=== PATIENT | female | born 1955 | race Caucasian/White ===

== ENCOUNTER → 2020-12-19 10:07 | Outpatient (BNVA) | payer MEDICARE, MEDICAID, SELFPAY | PROVIDERS: PCP Pediatrics; Visit Provider Internal Medicine Rheumatology | DX: M15.9 Polyosteoarthritis, unspecified (principal); R76.8 Other specified abnormal immunological findings in serum; Z79.899 Other long term (current) drug therapy; Z11.59 Encounter for screening for other viral diseases; Z11.1 Encounter for screening for respiratory tuberculosis; M35.9 Systemic involvement of connective tissue, unspecified; E11.9 Type 2 diabetes mellitus without complications; Z79.4 Long term (current) use of insulin; J44.9 Chronic obstructive pulmonary disease, unspecified; Z99.81 Dependence on supplemental oxygen; Z85.72 Personal history of non-Hodgkin lymphomas; Z71.89 Other specified counseling; F17.200 Nicotine dependence, unspecified, uncomplicated; M19.90 Unspecified osteoarthritis, unspecified site | CPT/HCPCS: 36415; 71046; 73630; 80076; 82306; 82565; 85025; 86160; 86162; 86235; 86255; 86376; 86480; 86704; 86803; 87340; 99204; 99214 ==

== ENCOUNTER 2020-12-19 11:46 | Outpatient (CLI) | payer MEDICARE, MEDICAID, SELFPAY ==
--- NOTE | 2020-12-19 11:51 | XRR_ITS ---
PROCEDURE INFORMATION: Exam: XR Right Foot Exam date and time: 12/19/2020 11:51 AM Age: 65 years old Clinical indication: Foot; Bilateral; Patient HX: Swelling in feet. HX of hodgkins lymphoma. 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 Views: 3 or more views. COMPARISON: No relevant prior studies available. FINDINGS: Bones/joints: Tiny calcaneal spur present. Negative for fracture. No irregular osseous erosion. Mild DJD at the 1st metatarsophalangeal joint space. Soft tissues: Normal. XR/XR foot RT min 3V* [id number] IMPRESSION: No acute osseous findings of the right foot.
--- NOTE | 2020-12-19 11:51 | XRR_ITS ---
PROCEDURE INFORMATION: Exam: XR Chest Exam date and time: 12/19/2020 11:51 AM Age: 65 years old Clinical indication: Patient HX: Swelling in feet. HX of hodgkins lymphoma. 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 Views: 2 views. COMPARISON: No relevant prior studies available. FINDINGS: Lungs: Hazy opacification at the right lung base. Otherwise no focal consolidation. Calcified granuloma or bone island projecting over the peripheral left upper lobe. Pleural spaces: Unremarkable. No pleural effusion. No pneumothorax. Heart/Mediastinum: Unremarkable. No cardiomegaly. Bones/joints: See Lungs finding. XR/XR chest 2V* [id number] IMPRESSION: Hazy opacification at the right lung base, atelectasis is a consideration as well as developing infection in the appropriate clinical setting.
--- NOTE | 2020-12-19 11:51 | XRR_ITS ---
PROCEDURE INFORMATION: Exam: XR Left Foot Exam date and time: 12/19/2020 11:51 AM Age: 65 years old Clinical indication: Foot; Bilateral; Patient HX: Swelling in feet. HX of hodgkins lymphoma. Hand pain; Additional info: Z79.899 - other alf (current) drug therapy TECHNIQUE: Imaging protocol: XR Left foot. Views: 3 or more views. COMPARISON: No relevant prior studies available. FINDINGS: Bones/joints: Tiny calcaneal spur. Small enthesophyte at the Achilles insertion. No evidence of fracture. No irregular osseous erosions. Soft tissues: Normal. XR/XR foot LT min 3V* [id number] IMPRESSION: No acute osseous abnormalities of the left foot.
[2020-12-19 12:30] LABS: Basophils # 0.1 10^3/uL (0.0-0.1); Basophils % 1.3 %; Eosinophils # 0.3 10^3/uL (0.0-0.8); Eosinophils % 3.5 %; Hematocrit 41.2 % (37.0-47.0); Hemoglobin 12.9 g/dL (11.5-15.3); Lymphocytes % 24.6 %; Mean Corpuscular HGB Conc 31.3 g/dL (30.0-36.0); Mean Corpuscular Hemoglobin 27.8 pg (28.0-34.0); Mean Corpuscular Volume 88.8 fL (81-99); Mean Platelet Volume 10.2 fL (7.4-10.4); Monocytes # 0.5 10^3/uL (0.2-0.9); Monocytes % 5.8 %; Neutrophils # 5.31 10^3/uL (1.8-7.7); Neutrophils % 64.4 %; Nucleated Red Blood Cells % 0 %; Platelet Count 266 10^3/cmm (130-400); Red Blood Count 4.64 10^6/uL (4.1-5.3); Red Cell Distribution Width 15.1 % (12.1-15.1); White Blood Count 8.3 10^3/uL (4.0-10.0)
[2020-12-19 13:15] LABS: Hepatitis B Surface Antigen Non-Reactive (Nonreactive); Hepatitis C Virus Antibody Non-Reactive (Nonreactive)
[2020-12-19 13:29] LABS: Hepatitis B Core AB, Total Non-Reactive (Nonreactive)
[2020-12-19 13:52] LABS: Alanine Aminotransferase 18 U/L (0-33); Albumin Level 4.3 g/dL (3.5-5.2); Alkaline Phosphatase 158 IU/L (35-105); Aspartate Amino Transferase 18 U/L (0-32); Globulin 2.5 g/dL (1.3-4.6); Glomerular Filtration Rate 83.5 mL/min (90-130); Total Bilirubin 0.5 mg/dL (0.15-1.2); Total Protein 6.8 g/dL (6.6-8.7)
[2020-12-19 14:08] LABS: 25 Hydroxy Vitamin D 12 ng/mL (30-100)
[2020-12-20 15:58] LABS: COMPLEMENT, TOTAL (CH50) >60 U/mL (31-60)
[2020-12-21 11:37] LABS: COMPLEMENT COMPONENT C3C 178 mg/dL (83-193); COMPLEMENT COMPONENT C4C 49 mg/dL (15-57)
[2020-12-21 15:34] LABS: Quantiferon Mitogen 9.03 IU/mL; Quantiferon Nil 0.01 IU/mL; Quantiferon TB Gold NEGATIVE (NEGATIVE)
[2020-12-21 16:42] LABS: THYROID PEROXIDASE ANTIBODIES 3 IU/mL (<9)
[2020-12-22 12:53] LABS: CENTROMERE B ANTIBODY <1.0 NEG AI (<1.0 NEG); JO-1 ANTIBODY <1.0 NEG AI (<1.0 NEG); RNP ANTIBODY <1.0 NEG AI (<1.0 NEG); SCL-70 ANTIBODY <1.0 NEG AI (<1.0 NEG); SJOGREN'S ANTIBODY (SS-A) <1.0 NEG AI (<1.0 NEG); SM ANTIBODY <1.0 NEG AI (<1.0 NEG); SS-B <1.0 NEG AI (<1.0 NEG)
[2020-12-26 12:07] LABS: ANA PATTERN Nuclear, Homogeneous; ANA SCREEN, IFA POSITIVE (NEGATIVE)
[2020-12-28 02:28] LABS: DNA AB (DS) CRITHIDIA,IFA NEGATIVE (NEGATIVE)
== END 2020-12-19 11:47 | disposition home or self-care (01) ==
PROVIDERS: PCP Pediatrics; Visit Provider Internal Medicine Rheumatology
DX: M19.90 Unspecified osteoarthritis, unspecified site (principal); Z79.899 Other long term (current) drug therapy; Z11.59 Encounter for screening for other viral diseases; R76.8 Other specified abnormal immunological findings in serum; Z11.1 Encounter for screening for respiratory tuberculosis
CPT/HCPCS: 36415; 71046; 73630; 80076; 82306; 82565; 85025; 86160; 86162; 86235; 86255; 86376; 86480; 86704; 86803; 87340

== ENCOUNTER → 2021-12-12 14:06 | Outpatient (BNVA) | payer MEDICARE, MEDICAID, SELFPAY | PROVIDERS: PCP Pediatrics; Referring Provider Pediatrics; Visit Provider Nurse Practitioner Family | DX: M67.442 Ganglion, left hand (principal); M65.332 Trigger finger, left middle finger; M65.342 Trigger finger, left ring finger | CPT/HCPCS: 73110; 99214 ==

== ENCOUNTER → 2022-04-17 13:51 | Outpatient (BNVA) | payer MEDICARE, MEDICAID, SELFPAY | PROVIDERS: PCP Pediatrics; Visit Provider Specialist | DX: M79.642 Pain in left hand (principal); M65.332 Trigger finger, left middle finger; M65.342 Trigger finger, left ring finger; R22.9 Localized swelling, mass and lump, unspecified | CPT/HCPCS: 99213 ==